=== PATIENT | female | born 1995 ===

== ENCOUNTER 2021-04-27 09:10 | Outpatient (REF) | payer OTHER, SELFPAY ==
[2021-04-28 06:42] LABS: CT PCR NOT DETECTED (Not Detect.); NG PCR NOT DETECTED (Not Detect.)
[2021-04-28 08:37] LABS: BV Int Neg Control Negative (Negative); BV Int Pos Control Positive (Positive)
== END 2021-04-27 09:11 | disposition home or self-care (01) ==
LOC: HO.LAB 09:10
PROVIDERS: Visit Provider Advanced Practice Midwife
DX: N94.10 Unspecified dyspareunia (principal); N93.0 Postcoital and contact bleeding; R10.2 Pelvic and perineal pain
CPT/HCPCS: 81025; 87480; 87491; 87510; 87591; 87660; 99202

== ENCOUNTER 2021-05-18 12:51 | Outpatient (REF) | payer OTHER, SELFPAY ==
--- NOTE | ~2021-05-18 | US_ITS ---
EXAMINATION: ULTRASOUND PELVIS AND TRANSVAGINAL CLINICAL INFORMATION: Dyspareunia. Right ovary enlarged. COMPARISON: None TECHNIQUE: Transabdominal and transvaginal imaging of pelvis was obtained. FINDINGS: On ultrasound the uterus is anteverted and anteflexed measuring 7.37 in length, 3.9 cm in AP and 4.7 cm in transverse dimension. The endometrial thickness is 0.3 cm. The uterus is homogeneous echotexture. The right ovary measures 3.2 x 1.9 x 1.6 cm and volume 5.1 mL. It appears unremarkable except for tiny follicles. Left ovary measures 2.6 1.8 x 1.3 cm and volume 3.2 mL. It appears unremarkable except for tiny follicles There is no free fluid in the cul-de-sac. US/US pelvic and transvaginal IMPRESSION: Unremarkable anteflexed uterus. Ovaries unremarkable. There is no free fluid in cul-de-sac.
== END 2021-05-18 12:52 | disposition home or self-care (01) ==
LOC: HO.US 12:51
PROVIDERS: Visit Provider Advanced Practice Midwife
DX: N94.10 Unspecified dyspareunia (principal); N93.0 Postcoital and contact bleeding
CPT/HCPCS: 76830; 76856

== ENCOUNTER 2021-05-27 09:47 | Outpatient (REF) | payer OTHER, SELFPAY ==
[2021-05-28 09:18] LABS: CT PCR NOT DETECTED (Not Detect.); NG PCR NOT DETECTED (Not Detect.)
== END 2021-05-27 09:48 | disposition home or self-care (01) ==
LOC: HO.LAB 09:47
PROVIDERS: Visit Provider Advanced Practice Midwife
DX: Z01.419 Encounter for gynecological examination (general) (routine) without abnormal findings (principal); Z11.3 Encounter for screening for infections with a predominantly sexual mode of transmission; Z71.2 Person consulting for explanation of examination or test findings; Z20.2 Contact with and (suspected) exposure to infections with a predominantly sexual mode of transmission; I95.9 Hypotension, unspecified
CPT/HCPCS: 87491; 87591; 88142

== ENCOUNTER 2022-09-07 09:28 | Outpatient (REF) | payer OTHER, SELFPAY ==
[2022-09-07 15:29] LABS: CT PCR NOT DETECTED (Not Detect.); NG PCR NOT DETECTED (Not Detect.)
== END 2022-09-07 09:29 | disposition home or self-care (01) ==
LOC: HO.LNP 09:28
PROVIDERS: Visit Provider Advanced Practice Midwife
DX: Z01.419 Encounter for gynecological examination (general) (routine) without abnormal findings (principal); Z11.8 Encounter for screening for other infectious and parasitic diseases; Z11.3 Encounter for screening for infections with a predominantly sexual mode of transmission
CPT/HCPCS: 87491; 87591

== ENCOUNTER 2024-10-10 14:00 | Outpatient (REF) | payer OTHER, SELFPAY ==
[2024-10-11 12:27] LABS: Bacterial Vaginosis PCR NEGATIVE (Negative); Candida Group PCR NOT DETECTED (Not Detect); Candida glab krusei PCR NOT DETECTED (Not Detect); Trichomonas vaginalis PCR NOT DETECTED (Not Detect)
[2024-10-11 13:40] LABS: CT PCR NOT DETECTED (Not Detect.); NG PCR NOT DETECTED (Not Detect.)
== END 2024-10-10 14:01 | disposition home or self-care (01) ==
LOC: HO.LAB 14:00
PROVIDERS: Visit Provider Advanced Practice Midwife
DX: Z01.419 Encounter for gynecological examination (general) (routine) without abnormal findings (principal); N89.8 Other specified noninflammatory disorders of vagina; Z11.3 Encounter for screening for infections with a predominantly sexual mode of transmission
CPT/HCPCS: 0352U; 87491; 87591; 99395

== ENCOUNTER 2024-10-10 14:00 | Outpatient (AMB) | payer OTHER, SELFPAY ==
[2024-10-10 14:04] VITALS: BP 100/60; BMI 19.5
--- NOTE | 2024-10-10 14:04 | MHC.OFFVIS ---
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 She is not having any problems at all gynecologically. She gets very regular periods and they like clockwork she thinks she can tell when she is ovulating based on all the symptoms of what she feels inside discharge. She is not currently sexually active and usually it is with women and if she is active with a man she uses condoms she has no particular worries about STIs but is open to testing today's exam Pap smear. She does not think she needs to do blood work for HIV etc. and declines those tests she has a primary care provider that she just met ones who is a natural primary care provider the [facility] and the only thing that was found at her exam was that she has low in vitamin-D so she just recently started on a vitamin-D supplement which she forgot to mention during the intake. She only takes it once a week. 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 She loves to dance for exercise and she has solo dance parties at home. She has cramping the day before her periods starts and the 1st day but is already better by the 2nd the day and at most she uses uses heating pads and tries to take care of it non the distally but if she has to be somewhere where she has to function she might taken Excedrin with food in her stomach and finds that helps. She is not at all interested in any hormonal method of control she has used OCPs and Depo in the past. 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 Sexual orientation: Straight/Heterosexual Gender identity: Female Female Reproductive History Menstrual Age of Menarche: 16 Date of last menstrual period: 09/20/24 control method: none Total pregnancies: 0 Date of last pap smear: 05/27/21 (negative) Physical Exam Vital Signs: Last Vital Signs BP 100/60 10/10/24 14:04 BMI result Body Mass Index 19.5 Const General: healthy appearing, comfortable, no acute distress, well developed and alert Nutritional Appearance: average body habitus Orientation/consciousness: patient oriented x3 Limitations: no limitations HEENT Head: Yes normocephalic Neck Neck: Yes normal visual inspection Chest Chest palpation & inspection: normal inspection of the chest Breast/axilla inspection: normal inspection of the breasts and normal inspection of the axillae Breast/axilla palpation: normal palpation of the breasts and normal palpation of the axillae Resp Effort & Inspection: normal respiratory effort GI Inspection: Yes normal to inspection, No Abdominal wall edema and No distended Palpation (GI): Soft to palpation and nontender Other: Normal external exam vagina is pink and moist with normal appearing mucus and discharge which is white, cervix is nulliparous tightly closed somewhat posterior uterus is retroverted mobile nontender adnexa nontender cervix was slightly friable with Pap. Good tone with kegel. General: Yes bladder normal to palpation External Female Exam: normal external appearance and normal appearance of the urethra Speculum Exam - Vagina: normal appearance of the vagina, normal palpation and normal vaginal discharge Speculum Exam - Cervix: normal appearance of the cervix, normal palpation and nontender Bimanual exam- vagina & uterus: normal bimanual exam, normal palpation, uterine size normal, bladder normal to palpation, consistency normal, normal palpation, uterine mobility normal, uterine shape normal, No Cervical tenderness present, non-tender and no cervical motion tenderness Bimanual Exam- Adnexa, other: normal adnexae, no masses, normal and No adnexal tenderness Neuro General: patient oriented x3 Results Reviewed Results Reviewed: Name: Antonella Álvarez Age/Sex: 25/F Attending: Margarette Conrad CNM : 1995 Submitted by: Margarette Conrad CNM Copies to: MR #: [id number] Status: DEP REF Collected: 05/27/21 Location: [facility] Received: 05/31/21 Interpretation Satisfactory for evaluation. Cytolysis noted. Negative for intraepithelial lesion or malignancy. Clinical Information LMP: 05/17/21 Previous PAP test: Unknown Date, WNL Material Received ThinPrep Cervical Electronically Signed By: FATIMAH Capellan [facility] 06/06/21 0298 The Pap Test is a screening procedure with the inherent possibility of both false negative and false positive results. Results should be interpreted in the context of historic and current clinical findings. Reliability of the Pap Test is enhanced by performing the test on a regular repetitive basis. Patient: Page 1 of 1 Assessment & Plan Assessment & Plan (1) Well woman exam with routine gynecological exam: Code(s): Z01.419 - Encounter for gynecological examination (general) (routine) without abnormal findings Category: Medical (2) Cervical cancer screening: Code(s): Z12.4 - Encounter for screening for malignant neoplasm of cervix Category: Medical (3) Encounter for screening examination for sexually transmitted disease: Code(s): Z11.3 - Encounter for screening for infections with a predominantly sexual mode of transmission Category: Medical Plan -----Discussed in this visit the following: healthy balanced diet, regular and consistent exercise, getting recommended health screens, doing the best she can for her particular health concerns, kegel exercises, pap smear screening and followup recommendations, mammography screening and SBE, normal changes in cycles in her life stage--- . See HPI she prefers to uses few medications as possible and manage her symptoms of cramping with her. With heating pads when she can. She is not interested in any kind of hormonal control and she has sex with a man she will use condoms. She thinks she is aware of when she ovulates and we discussed the menstrual cycle and all the changes that occur different times. We will await Pap smear if there any abnormalities she will be notified and we would follow the ASCCP guidelines the follow-up testing was done for gonorrhea chlamydia trichomoniasis Gardnerella and Dionne. Discussed that the last 2 are normal sha and do not need to be treated unless they are symptomatic. She declined any other testing today we will see her in 1 year she does have a primary care provider. Orders: Orders CT NG by PCR Today N89.8 - Other specified noninflammatory disorders of vagina Bacterial Vaginosis Panel Today N89.8 - Other specified noninflammatory disorders of vagina Pap Smear Today Z01.419 - Encounter for gynecological examination (general) (routine) without abnormal findings Coding Level of Care Code Est Pt Prev Care [id number]([id number]) Diagnoses Well woman exam with routine gynecological exam Z01.419 Cervical cancer screening Z12.4 Encounter for screening examination for sexually transmitted disease Z11.3
== END 2024-10-10 15:07 | disposition home or self-care (01) ==
PROVIDERS: Visit Provider Advanced Practice Midwife
DX: Z01.419 Encounter for gynecological examination (general) (routine) without abnormal findings (principal); Z12.4 Encounter for screening for malignant neoplasm of cervix; Z11.3 Encounter for screening for infections with a predominantly sexual mode of transmission
CPT/HCPCS: 99395

== ENCOUNTER 2024-10-10 14:42 | Outpatient (REF) | payer OTHER, SELFPAY ==
[2024-10-13 10:32] LABS: HPV 16,18/45 See PAP report
== END 2024-10-10 14:43 | disposition home or self-care (01) ==
LOC: HO.LNP 14:42
PROVIDERS: Visit Provider Advanced Practice Midwife
DX: Z01.419 Encounter for gynecological examination (general) (routine) without abnormal findings (principal)
CPT/HCPCS: 87624; 88175

== ENCOUNTER 2025-11-08 14:57 | Emergency (ER) | payer OTHER, SELFPAY ==
--- NOTE | ~2025-11-08 | XR_ITS ---
CLINICAL HISTORY: R shoulder blade pain 2 views right scapula Comparison: None Findings: No fractures or dislocations. No significant arthritic change. No radiopaque foreign body. Normal visualized right chest. Impression: 1. Normal right scapula This document has been electronically signed by: Barry Rivera MD on 11/08/2025 16:16:06
--- NOTE | ~2025-11-08 | XR_ITS ---
CLINICAL HISTORY: R shoulder blade pain numbness to R hand 5-view cervical spine Comparison: None Findings: No fractures or dislocations. Normal vertebral body alignment. No significant arthritic change. No left neural foraminal stenosis. Right foramen were not imaged, with no right oblique image. Lung apices unremarkable Impression: 1. Unremarkable cervical spine. This document has been electronically signed by: Barry Rivera MD on 11/08/2025 16:16:50
--- NOTE | ~2025-11-08 | XR_ITS ---
CLINICAL HISTORY: cp 2 view chest x-ray. Comparison: None Findings: No consolidation or effusion. Cardiac and mediastinal contours are unremarkable. Bones unremarkable. Impression: 1. No acute pulmonary disease. This document has been electronically signed by: Barry Rivera MD on 11/08/2025 18:39:29
[2025-11-08 15:27] VITALS: BP 102/55; PULSE 78; RESP 16; TEMP 36.1; O2SAT 99; BMI 19.1
--- NOTE | 2025-11-08 15:27 | ED.GENADULT ---
HPI - General Adult General Chief complaint: Extremity Injury, Upper Stated complaint: R shoulder pain 2 weeks Time Seen by Provider: 11/08/25 18:00 History of Present Illness HPI narrative: patient is a 22-year-old female presents today with having right shoulder pain. Symptoms been ongoing for 2 weeks. There is no specific injury. The pain happened when she moves her right shoulder. There is no focal weakness. Patient does feel intermittent tingling to the right hand and also to the foot although she is able to ambulate well she is able to carry out activities of daily living without any issues. Patient has no bowel urinary incontinence. Has no significant past medical history. Related Data Previous Rx's ?Medication ?Instructions ?Recorded ibuprofen 400 mg tablet 400 mg PO Q6H PRN pain #20 tabs 11/08/25 Allergies Allergy/AdvReac Type Severity Reaction Status Date / Time amoxicillin Allergy Mild Hives Verified 11/08/25 15:30 Penicillins Allergy Mild Hives Verified 11/08/25 15:30 Review of Systems Review of Systems: Right shoulder pain Yes all other systems are reviewed and are negative [facility] Past Medical History Attestation statement: The following information was validated with the patient. 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 Oriented X3. No acute distress. Eyes: Pupils equal, round and reactive to light. ENT: Pharynx normal. Neck: Normal inspection. Neck supple. No lymph nodes noted. No crepitus CVS: Normal heart rate and rhythm. Pulses normal. Normal S1 and S2 Respiratory: No respiratory distress. Breath sounds normal. No Wheezing. No rales Abdomen: Soft and nontender. No rigidity. No distention. good BS x4 Skin: Skin warm and dry. Normal skin color. Normal skin turgor. Extremities: Positive pain on abduction internal external rotation of the shoulder. Although gross range of motion is intact. Sensation over the axillary distribution is intact. Sensation over the median radial and ulnar intact. Motor at the risk intact motor at the elbow intact opposition of the thumb intact capillary refill less than 2 seconds [id number] intact. Skin intact. Neuro: Oriented X 3. No motor deficit. No sensory deficit. Moving all extermities. No slurred speech . Patient has normal gait no deficits appreciated Vital Signs: Vital Signs - 24 hr 11/08/25 15:27 Temperature 97.0 F Pulse Rate 78 Respiratory Rate 16 Blood Pressure 102/55 L Pulse Oximetry 99 Oxygen Delivery Method Room Air BMI result Body Mass Index 19.1 Course Course Course Narrative: This is a Rapid Medical Examination (RME) performed by Adalid Topete PA-C in triage. Full HPI, ROS, assessment and treatment plan per primary provider in the Main ED. Hx: 30 yo F here for eval of right shoulder blade pain x2 weeks. worse in the morning and with right arm movements. no injury/trauma or heavy lifting. also endorsing numbness to R foot ad R hand. no chest pain. Plan: xrs Medical Decision Making Medical Decision Making [facility] Narrative: x-ray of the scapula is grossly negative. X-ray of the C-spine grossly negative. X-ray of the chest showed no evidence of pneumonia pneumothorax well-appearing pain seems to be worse with movement of the shoulder. Although neurovascularly intact. There is good pulses distally. Will discharge patient home close follow-up advised. Differential Diagnosis Differential Diagnoses: The differential diagnosis associated with the presentation includes Shoulder pain Admission/Observation Consideration of admission/observation: Escalation of care including admission/observation considered Consult Healthcare Provider Management of the patient was discussed with: Hospitalist Lab Data [facility] Lab Attestation statement: I reviewed the patient's lab results. Independent Interpretation I performed an independent interpretation of an: Plain X-Ray ( x-ray of the shoulder grossly negative) Radiology Impression Discussion of test interpretation with radiology: I have reviewed the radiologist's reading. Discharge Plan Discharge Clinical Impression: Acute shoulder pain Patient Disposition: Home, Self-Care Instructions: Shoulder Pain (ED) Prescriptions: New ibuprofen 400 mg tablet 400 mg PO Q6H PRN (Reason: pain) Qty: 20 0RF Referrals: Hollis Meyer DO [Primary Care Provider, Internal Medicine] - 11/11/25 Pineda Montes MD [Physician, Orthopedics] - 11/11/25 Print Language: Ukrainian
[2025-11-08 19:36] VITALS: BP 0/0; PULSE 0; RESP 18; TEMP -17.7; TEMP 0; O2SAT 0
[2025-11-08 19:39] VITALS: RESP 18
== END 2025-11-08 19:41 | disposition home or self-care (01) ==
PROVIDERS: Emergency Provider Emergency Medicine Emergency Medical Services; PCP Hospitalist
DX: M25.511 Pain in right shoulder (principal); R20.0 Anesthesia of skin; R07.9 Chest pain, unspecified
CPT/HCPCS: 71046; 72050; 73010; 99283

== ENCOUNTER → 2025-11-08 15:29 | Outpatient (BNV) | payer OTHER, SELFPAY | PROVIDERS: PCP Hospitalist; Visit Provider Radiology Diagnostic Radiology | DX: R20.2 Paresthesia of skin (principal); R07.9 Chest pain, unspecified; M25.511 Pain in right shoulder | CPT/HCPCS: 71046; 72050; 73010 ==